=== PATIENT | female | born 1950 | race Caucasian/White ===

== ENCOUNTER 2024-08-18 07:07 | Day surgery (SDC) | payer OTHER ==
[~2024-08-18] VITALS: Ht 167.6 cm; Wt 103.7 kg
[~2024-08-18 07:07] MED LIST: Dexamethasone Sod Phos 10 MG/ML 1ML VIAL ONE; FentaNYL Citrate 50 MCG/ML 2 ML Injection ONE; Lidocaine HCl 2% 10 ML SDA ONE; Midazolam HCl 1MG / ML 2ML Vial ONE; Ondansetron HCl 2 MG / ML 2ML Vial ONE
[2024-08-18] MEDS ORDERED: CeFAZolin Sodium 2,000 MG VIAL ONE (07:59)
[2024-08-18] MEDS ORDERED: NS 100 ML IV ONE (08:00)
[2024-08-18] MEDS ORDERED: ABILIFY MYCITE2 M2 PO (08:12)
[2024-08-18] MEDS ORDERED: LORA10ER PO (08:12)
[2024-08-18] MEDS ORDERED: METO50ER PO (08:12)
[2024-08-18] MEDS ORDERED: Crestor40 MG PO (08:12)
[2024-08-18] MEDS ORDERED: VENL150ER PO (08:13)
[2024-08-18] MEDS ORDERED: LOSA25 PO (08:14)
[2024-08-18] MEDS ORDERED: Ketorolac Tromethamine 30mg Vial ONE (08:34)
[2024-08-18 09:30] VITALS: BP 174/80
== END 2024-08-18 09:51 | disposition home or self-care (01) ==
LOC: ORSCSDS 07:07
PROVIDERS: Orthopaedic Surgery
PROC: 01N40ZZ Release Ulnar Nerve, Open Approach (ICD-10-PCS; principal; 2024-08-18 09:00)
PROC: 01N54ZZ Release Median Nerve, Percutaneous Endoscopic Approach (ICD-10-PCS; principal; 2024-08-18 09:00)
DX: G56.21 Lesion of ulnar nerve, right upper limb (principal); G56.01 Carpal tunnel syndrome, right upper limb; I10 Essential (primary) hypertension; E78.5 Hyperlipidemia, unspecified; E66.9 Obesity, unspecified; Z68.36 Body mass index [BMI] 36.0-36.9, adult; Z79.899 Other long term (current) drug therapy
CPT/HCPCS: J0690; J1100; J1885; J2003; J2250; J2405; J2704; J3010; J7120